=== PATIENT | female | born 1970 | race Caucasian/White ===

== ENCOUNTER 2016-05-18 09:50 | Emergency (ER) | payer BC ==
[2016-05-18] MEDS ORDERED: ZOVIRAX400 MG PO (10:08)
[2016-05-18] MEDS ORDERED: PREDNISONE20 M1 PO (10:08)
[2016-05-18] MEDS ORDERED: CLINDAMYCIN 300MG PO (10:09)
[2016-05-18] MEDS ORDERED: TYLENOL EXTRA500 M2 PO (10:09)
[2016-05-18] MEDS ORDERED: PEPCID 20MG TAB20 MG PO (13:20)
[2016-05-18] MEDS ORDERED: PERCOCET 325 MG1 TA2 PO (13:20)
[2016-05-18] MEDS ORDERED: OMEPRAZOLE20 MG PO (13:20)
[2016-05-18 13:25] VITALS: BP 125/84
== END 2016-05-18 13:29 | disposition home or self-care (01) ==
LOC: ED 09:50
DX: K20.9 Esophagitis, unspecified (principal); G51.0 Bell's palsy; F17.210 Nicotine dependence, cigarettes, uncomplicated

== ENCOUNTER → 2017-09-02 | Outpatient (CLI) | payer BC ==
[~2017-09-02] MED LIST: CLINDAMYCIN 300MG PO; OMEPRAZOLE20 MG PO; PEPCID 20MG TAB20 MG PO; PERCOCET 325 MG1 TA2 PO; PREDNISONE20 M1 PO; TYLENOL EXTRA500 M2 PO; ZOVIRAX400 MG PO
== END ==
LOC: MAMMO 13:36
DX: Z12.31 Encounter for screening mammogram for malignant neoplasm of breast (principal); N63.11 Unspecified lump in the right breast, upper outer quadrant; N63.20 Unspecified lump in the left breast, unspecified quadrant

== ENCOUNTER → 2017-09-11 | Outpatient (CLI) | payer BC | LOC: MAMMO 14:07 | DX: N60.02 Solitary cyst of left breast (principal) ==

== ENCOUNTER → 2017-10-07 | Outpatient (CLI) | payer BC ==
[2017-10-07 13:53] LABS: EOS # 0.3 (0.04-0.40); EOS % 4.2 % (1.0-5.0); HEMATOCRIT 40.1 % (37.0-47.0); HEMOGLOBIN 13.2 g/dL (12.5-16.0); MEAN CELL VOLUME 92 fl (78-100); MEAN CORPUSCULAR HEMOGLOBIN 30 pg (27-31); MEAN CORPUSCULAR HGB CONC 33 g/dL (33-37); MEAN PLATELET VOLUME 9.7 fl (7.4-10.4); MONO # 0.5 (0.20-0.80); NEU # 3.4 (1.40-6.50); PLATELET COUNT 334 K/mm3 (130-400); RED BLOOD COUNT 4.37 M/mm3 (4.10-5.30); RED CELL DISTRIBUTION WIDTH 12.8 % (11.5-14.5); WHITE BLOOD COUNT 6.1 K/mm3 (4.8-10.8)
[2017-10-07 14:04] LABS: ALBUMIN 3.7 g/dL (3.5-5.0); BUN/CREATININE RATIO 10.8 (6.0-26.0); CALCIUM 8.5 mg/dL (8.4-10.2); POTASSIUM 3.9 mmol/L (3.6-5.0); TOTAL BILIRUBIN 0.3 mg/dL (0.2-1.3); TOTAL PROTEIN 7.1 g/dL (6.3-8.2)
[2017-10-07 23:17] LABS: HEPATITIS B CORE AB TOTAL Negative (()); HEPATITIS B SURFACE ANTIGEN Negative (()); HEPATITIS C VIRUS ANTIBODY Negative (())
== END ==
LOC: LAB 13:33
PROVIDERS: Physician Assistant
DX: Z79.899 Other long term (current) drug therapy (principal)

== ENCOUNTER → 2017-11-24 | Outpatient (CLI) | payer BC | LOC: MAMMO 07:11 | DX: N60.01 Solitary cyst of right breast (principal) ==

== ENCOUNTER 2017-12-02 21:30 | Emergency (ER) | payer BC ==
[~2017-12-02] VITALS: Ht 165.1 cm; Wt 100.0 kg
[2017-12-02] MEDS ORDERED: HUMIRA40 MG/0.5 (21:56)
[2017-12-02 22:11] LABS: EOS # 0.2 (0.04-0.40); HEMATOCRIT 39.9 % (37.0-47.0); HEMOGLOBIN 13.1 g/dL (12.5-16.0); LYMPH# 1.6 (1.50-4.00); MEAN CELL VOLUME 90 fl (78-100); MEAN CORPUSCULAR HEMOGLOBIN 30 pg (27-31); MEAN CORPUSCULAR HGB CONC 33 g/dL (33-37); MEAN PLATELET VOLUME 9.9 fl (7.4-10.4); MONO # 0.4 (0.20-0.80); NEU # 4.4 (1.40-6.50); PLATELET COUNT 307 K/mm3 (130-400); RED BLOOD COUNT 4.44 M/mm3 (4.10-5.30); RED CELL DISTRIBUTION WIDTH 13.1 % (11.5-14.5); WHITE BLOOD COUNT 6.7 K/mm3 (4.8-10.8)
[2017-12-02 22:23] LABS: BUN/CREATININE RATIO 14.1 (6.0-26.0); POTASSIUM 3.7 mmol/L (3.6-5.0); TOTAL BILIRUBIN 0.4 mg/dL (0.2-1.3)
[2017-12-02 22:37] LABS: PH-URINE 5.5 (5.0 - 8.0); URINE APPEARANCE HAZY; URINE BILIRUBIN NEGATIVE (NEGATIVE); URINE BLOOD 50 ery/uL (NEGATIVE); URINE COLOR YELLOW; URINE GLUCOSE NEGATIVE (NEGATIVE); URINE KETONE NEGATIVE (NEGATIVE); URINE LEUKOCYTE ESTERASE TRACE (NEGATIVE); URINE NITRATE NEGATIVE (NEGATIVE); URINE PROTEIN(semi-quant) TRACE mg/dL (NEGATIVE); URINE UROBILINOGEN NORMAL (NORMAL)
[2017-12-02] MEDS ORDERED: PROTONIX20 M1 PO (23:42)
[2017-12-02 23:50] VITALS: BP 142/78
== END 2017-12-02 23:50 | disposition home or self-care (01) ==
LOC: ED 21:30
PROVIDERS: Nurse Practitioner Family
DX: K21.9 Gastro-esophageal reflux disease without esophagitis (principal); R53.81 Other malaise; R53.83 Other fatigue; B37.49 Other urogenital candidiasis; I10 Essential (primary) hypertension; L40.9 Psoriasis, unspecified; R07.9 Chest pain, unspecified; Z79.899 Other long term (current) drug therapy
CPT/HCPCS: J2405; J7030

== ENCOUNTER → 2018-06-25 | Outpatient (CLI) | payer BC ==
[~2018-06-25] MED LIST changes: +HUMIRA40 MG/0.5; +PROTONIX20 M1 PO
== END ==
LOC: LAB 15:46
DX: N39.0 Urinary tract infection, site not specified (principal); R35.0 Frequency of micturition; B96.1 Klebsiella pneumoniae [K. pneumoniae] as the cause of diseases classified elsewhere

== ENCOUNTER → 2019-01-19 | Outpatient (CLI) | payer BC | LOC: LAB 13:36 | DX: N39.0 Urinary tract infection, site not specified (principal) ==

== ENCOUNTER 2019-04-08 19:53 | Emergency (ER) | payer BC ==
[2019-04-08] MEDS ORDERED: OTEZLA30 MG PO (20:07)
[2019-04-08 23:18] VITALS: BP 143/97
[2019-04-08] MEDS ORDERED: PERCOCET 325 MG1 TA2 PO (23:27)
== END 2019-04-08 23:36 | disposition home or self-care (01) ==
LOC: ED 19:53
DX: S82.52XA Displaced fracture of medial malleolus of left tibia, initial encounter for closed fracture (principal); S82.832A Other fracture of upper and lower end of left fibula, initial encounter for closed fracture; I10 Essential (primary) hypertension; L40.9 Psoriasis, unspecified; F17.210 Nicotine dependence, cigarettes, uncomplicated; W00.9XXA Unspecified fall due to ice and snow, initial encounter; X50.1XXA Overexertion from prolonged static or awkward postures, initial encounter; Y92.009 Unspecified place in unspecified non-institutional (private) residence as the place of occurrence of the external cause
CPT/HCPCS: J3010

== ENCOUNTER → 2019-05-18 | Outpatient (CLI) | payer BC ==
[~2019-05-18] MED LIST changes: +OTEZLA30 MG PO
== END ==
LOC: LAB 16:46
DX: R30.0 Dysuria (principal); R31.9 Hematuria, unspecified; R35.0 Frequency of micturition

== ENCOUNTER → 2019-06-02 | Outpatient (CLI) | payer BC | LOC: MAMMO 05-11 14:30 | DX: Z12.31 Encounter for screening mammogram for malignant neoplasm of breast (principal); N63.20 Unspecified lump in the left breast, unspecified quadrant; N63.10 Unspecified lump in the right breast, unspecified quadrant ==

== ENCOUNTER → 2019-06-10 | Outpatient (CLI) | payer BC | LOC: RAD 12:04 | DX: N60.12 Diffuse cystic mastopathy of left breast (principal); N60.11 Diffuse cystic mastopathy of right breast; N63.12 Unspecified lump in the right breast, upper inner quadrant ==

== ENCOUNTER 2019-07-01 15:00 | Outpatient (RCR) | payer BC | END 2019-09-27 | disposition still patient (30) | LOC: PT | DX: Z98.890 Other specified postprocedural states (principal) ==

== ENCOUNTER → 2019-09-02 | Outpatient (CLI) | payer BC | LOC: LAB 15:21 | DX: R11.0 Nausea (principal); R68.83 Chills (without fever); M79.10 Myalgia, unspecified site; R42 Dizziness and giddiness; Z20.828 Contact with and (suspected) exposure to other viral communicable diseases ==

== ENCOUNTER → 2020-02-16 | Outpatient (CLI) | payer BC | LOC: LAB 07:44 | DX: J02.9 Acute pharyngitis, unspecified (principal); Z20.828 Contact with and (suspected) exposure to other viral communicable diseases ==

== ENCOUNTER → 2020-06-14 | Outpatient (CLI) | payer BC ==
[~2020-06-14] MED LIST changes: +BACTRIM DS TAB1 EACH PO; +LISINOPRIL40 MG PO; +NORVASC 10MG10 MG PO
[2020-06-15 07:49] LABS: CALCIUM 8.7 mg/dL (8.3-10.5); EOS # 0.2 (0.04-0.40); EOS % 3.5 % (1.0-5.0); HEMATOCRIT 44.7 % (37.0-47.0); HEMOGLOBIN 14.2 g/dL (12.5-16.0); LYMPH# 1.6 (1.50-4.00); MEAN CELL VOLUME 93 fl (78-100); MEAN CORPUSCULAR HEMOGLOBIN 30 pg (27-31); MEAN CORPUSCULAR HGB CONC 32 g/dL (33-37); MEAN PLATELET VOLUME 9.7 fl (7.4-10.4); MONO # 0.4 (0.20-0.80); NEU # 3.9 (1.40-6.50); PLATELET COUNT 359 K/mm3 (130-400); POTASSIUM 4.1 mmol/L (3.5-5.1); RED BLOOD COUNT 4.82 M/mm3 (4.10-5.30); RED CELL DISTRIBUTION WIDTH 13.9 % (11.5-14.5); TOTAL BILIRUBIN 0.3 mg/dL (0.2-1.2); TOTAL PROTEIN 7.6 g/dL (6.4-8.3); URINE COLOR YELLOW; WHITE BLOOD COUNT 6.2 K/mm3 (4.8-10.8)
[2020-06-15 07:50] LABS: URINE APPEARANCE CLEAR; URINE BILIRUBIN NEGATIVE (NEGATIVE); URINE BLOOD TRACE (NEGATIVE); URINE GLUCOSE NEGATIVE (NEGATIVE); URINE KETONE NEGATIVE (NEGATIVE); URINE LEUKOCYTE ESTERASE NEGATIVE (NEGATIVE); URINE MUCUS PRESENT (NOT PRESENT); URINE NITRATE NEGATIVE (NEGATIVE); URINE PROTEIN(semi-quant) NEGATIVE (NEGATIVE); URINE UROBILINOGEN NORMAL (NORMAL)
== END ==
LOC: LAB 08:00
PROVIDERS: Physician Assistant
DX: E78.5 Hyperlipidemia, unspecified (principal); I10 Essential (primary) hypertension; R53.83 Other fatigue; R31.9 Hematuria, unspecified; R10.2 Pelvic and perineal pain

== ENCOUNTER → 2020-08-22 | Outpatient (CLI) | payer BC | LOC: RAD 09:00 | DX: E27.8 Other specified disorders of adrenal gland (principal) | CPT/HCPCS: Q9967 ==

== ENCOUNTER → 2020-08-31 | Outpatient (CLI) | payer BC ==
[2020-08-31 13:06] LABS: BASO # 0.04 (0.02-0.10); EOS # 0.26 (0.04-0.40); EOS % 3.1 % (1.0-5.0); HEMATOCRIT 43.3 % (37.0-47.0); HEMOGLOBIN 14.1 g/dL (12.5-16.0); LYMPH# 1.55 (1.50-4.00); MEAN CELL VOLUME 93 fl (78-100); MEAN CORPUSCULAR HEMOGLOBIN 30 pg (27-31); MEAN CORPUSCULAR HGB CONC 33 g/dL (33-37); MEAN PLATELET VOLUME 9.7 fl (7.4-10.4); MONO # 0.59 (0.20-0.80); NEU # 5.78 (1.40-6.50); PLATELET COUNT 321 K/mm3 (130-400); RED BLOOD COUNT 4.64 M/mm3 (4.10-5.30); RED CELL DISTRIBUTION WIDTH 13.7 % (11.5-14.5); WHITE BLOOD COUNT 8.3 K/mm3 (4.8-10.8)
[2020-08-31 13:12] LABS: URINE COLOR YELLOW
[2020-08-31 13:13] LABS: URINE APPEARANCE CLEAR; URINE BILIRUBIN NEGATIVE (NEGATIVE); URINE BLOOD TRACE (NEGATIVE); URINE GLUCOSE NEGATIVE (NEGATIVE); URINE KETONE NEGATIVE (NEGATIVE); URINE LEUKOCYTE ESTERASE NEGATIVE (NEGATIVE); URINE NITRATE NEGATIVE (NEGATIVE); URINE PROTEIN(semi-quant) TRACE mg/dL (NEGATIVE); URINE UROBILINOGEN NORMAL (NORMAL); URINE WBC 0-1 /hpf (0-3)
== END ==
LOC: LAB 12:54
PROVIDERS: Nurse Practitioner
DX: R53.83 Other fatigue (principal); R10.9 Unspecified abdominal pain

== ENCOUNTER 2021-02-26 12:33 | Emergency (ER) | payer BC ==
[~2021-02-26 12:33] MED LIST changes: -BACTRIM DS TAB1 EACH PO; -LISINOPRIL40 MG PO; -NORVASC 10MG10 MG PO
[2021-02-26] MEDS ORDERED: LISINOPRIL40 MG PO (12:48)
[2021-02-26] MEDS ORDERED: NORVASC 10MG10 MG PO (12:48)
[2021-02-26 13:19] LABS: URINE APPEARANCE HAZY; URINE COLOR YELLOW
[2021-02-26 13:20] LABS: URINE BILIRUBIN 1+ (NEGATIVE); URINE BLOOD 250 ery/uL (NEGATIVE); URINE GLUCOSE NEGATIVE (NEGATIVE); URINE KETONE NEGATIVE (NEGATIVE); URINE LEUKOCYTE ESTERASE 1+ (NEGATIVE); URINE NITRATE NEGATIVE (NEGATIVE); URINE PROTEIN(semi-quant) 2+ mg/dL (NEGATIVE); URINE UROBILINOGEN NORMAL (NORMAL)
[2021-02-26 13:23] LABS: BASO # 0.05 K/mm3 (0.02-0.10); EOS # 0.24 K/mm3 (0.04-0.40); EOS % 3.5 % (1.0-5.0); HEMATOCRIT 42.6 % (37.0-47.0); HEMOGLOBIN 13.7 g/dL (12.5-16.0); LYMPH# 1.62 K/mm3 (1.50-4.00); MEAN CELL VOLUME 95 fl (78-100); MEAN CORPUSCULAR HEMOGLOBIN 31 pg (27-31); MEAN CORPUSCULAR HGB CONC 32 g/dL (33-37); MEAN PLATELET VOLUME 9.8 fl (7.4-10.4); MONO # 0.44 K/mm3 (0.20-0.80); PLATELET COUNT 313 K/mm3 (130-400); RED BLOOD COUNT 4.49 M/mm3 (4.10-5.30); RED CELL DISTRIBUTION WIDTH 13.3 % (11.5-14.5); WHITE BLOOD COUNT 6.9 K/mm3 (4.8-10.8)
[2021-02-26 13:30] LABS: ALBUMIN 3.5 g/dL (3.5-5.0)
[2021-02-26 13:31] LABS: CALCIUM 8.8 mg/dL (8.3-10.5)
[2021-02-26 13:33] LABS: TOTAL PROTEIN 6.9 g/dL (6.4-8.3)
[2021-02-26 13:34] LABS: TOTAL BILIRUBIN 0.5 mg/dL (0.2-1.2)
[2021-02-26 15:46] LABS: URINE APPEARANCE CLEAR; URINE BILIRUBIN NEGATIVE (NEGATIVE); URINE BLOOD TRACE (NEGATIVE); URINE COLOR YELLOW; URINE GLUCOSE NEGATIVE (NEGATIVE); URINE KETONE NEGATIVE (NEGATIVE); URINE LEUKOCYTE ESTERASE NEGATIVE (NEGATIVE); URINE MUCUS PRESENT (NOT PRESENT); URINE NITRATE NEGATIVE (NEGATIVE); URINE PROTEIN(semi-quant) TRACE mg/dL (NEGATIVE); URINE UROBILINOGEN NORMAL (NORMAL); URINE WBC 0-1 /hpf (0-3)
[2021-02-26 15:48] VITALS: BP 114/73
[2021-02-26] MEDS ORDERED: BACTRIM DS TAB1 EACH PO (15:48)
== END 2021-02-26 16:35 | disposition home or self-care (01) ==
LOC: ED 12:33
PROVIDERS: Nurse Practitioner
DX: R05.9 Cough, unspecified (principal)
CPT/HCPCS: J1885; J2405; J3010; J7030

== ENCOUNTER → 2021-10-16 | Outpatient (CLI) | payer BC ==
[~2021-10-16] MED LIST changes: +BACTRIM DS TAB1 EACH PO; +LISINOPRIL40 MG PO; +NORVASC 10MG10 MG PO
== END ==
LOC: LAB 17:19
DX: N39.0 Urinary tract infection, site not specified (principal)

== ENCOUNTER → 2021-10-29 | Outpatient (CLI) | payer BC ==
[2021-10-29 14:28] LABS: BASO # 0.04 K/mm3 (0.02-0.10); EOS # 0.18 K/mm3 (0.04-0.40); EOS % 3.8 % (1.0-5.0); HEMATOCRIT 42.8 % (37.0-47.0); HEMOGLOBIN 13.9 g/dL (12.5-16.0); LYMPH# 1.44 K/mm3 (1.50-4.00); MEAN CELL VOLUME 95 fl (78-100); MEAN CORPUSCULAR HEMOGLOBIN 31 pg (27-31); MEAN CORPUSCULAR HGB CONC 33 g/dL (33-37); MEAN PLATELET VOLUME 9.8 fl (7.4-10.4); MONO # 0.34 K/mm3 (0.20-0.80); NEU # 2.68 K/mm3 (1.40-6.50); PLATELET COUNT 346 K/mm3 (130-400); RED BLOOD COUNT 4.53 M/mm3 (4.10-5.30); RED CELL DISTRIBUTION WIDTH 12.3 % (11.5-14.5); WHITE BLOOD COUNT 4.7 K/mm3 (4.8-10.8)
[2021-10-29 14:39] LABS: POTASSIUM 4.3 mmol/L (3.5-5.1)
[2021-10-29 14:40] LABS: ALBUMIN 3.9 g/dL (3.5-5.0)
[2021-10-29 14:41] LABS: CALCIUM 9.2 mg/dL (8.3-10.5)
[2021-10-29 14:42] LABS: TOTAL PROTEIN 7.3 g/dL (6.4-8.3)
[2021-10-29 14:44] LABS: TOTAL BILIRUBIN 0.3 mg/dL (0.2-1.2)
[2021-10-29 14:49] LABS: MAGNESIUM 2.08 mg/dL (1.60-2.60)
== END ==
LOC: LAB 13:43
PROVIDERS: Physician Assistant
DX: Z00.00 Encounter for general adult medical examination without abnormal findings (principal); Z13.29 Encounter for screening for other suspected endocrine disorder; Z13.1 Encounter for screening for diabetes mellitus; E55.9 Vitamin D deficiency, unspecified; E78.5 Hyperlipidemia, unspecified; I10 Essential (primary) hypertension; K90.9 Intestinal malabsorption, unspecified

== ENCOUNTER 2023-02-23 08:05 | Emergency (ER) | payer OTHER ==
[~2023-02-23] VITALS: Ht 165.1 cm; Wt 95.5 kg
[2023-02-23] MEDS ORDERED: PREDNISONE 5MG5 MG PO (08:19)
[2023-02-23 08:54] LABS: BASO # 0.04 K/mm3 (0.02-0.10); EOS # 0.12 K/mm3 (0.04-0.40); EOS % 1.2 % (1.0-5.0); HEMATOCRIT 42.1 % (37.0-47.0); HEMOGLOBIN 13.7 g/dL (12.5-16.0); MEAN CELL VOLUME 95 fl (78-100); MEAN CORPUSCULAR HEMOGLOBIN 31 pg (27-31); MEAN CORPUSCULAR HGB CONC 33 g/dL (33-37); MEAN PLATELET VOLUME 9.8 fl (7.4-10.4); MONO # 0.45 K/mm3 (0.20-0.80); NEU # 5.87 K/mm3 (1.40-6.50); PLATELET COUNT 354 K/mm3 (130-400); RED BLOOD COUNT 4.43 M/mm3 (4.10-5.30); RED CELL DISTRIBUTION WIDTH 12.3 % (11.5-14.5); WHITE BLOOD COUNT 9.7 K/mm3 (4.8-10.8)
[2023-02-23 08:58] LABS: ALBUMIN 3.7 g/dL (3.5-5.0)
[2023-02-23 09:01] LABS: TOTAL PROTEIN 6.4 g/dL (6.4-8.3)
[2023-02-23 09:03] LABS: TOTAL BILIRUBIN 0.3 mg/dL (0.2-1.2)
[2023-02-23 11:21] LABS: URINE APPEARANCE CLEAR; URINE BILIRUBIN NEGATIVE (NEGATIVE); URINE BLOOD NEGATIVE (NEGATIVE); URINE COLOR YELLOW; URINE GLUCOSE NEGATIVE (NEGATIVE); URINE KETONE NEGATIVE (NEGATIVE); URINE LEUKOCYTE ESTERASE NEGATIVE (NEGATIVE); URINE NITRATE NEGATIVE (NEGATIVE); URINE PROTEIN(semi-quant) NEGATIVE (NEGATIVE); URINE UROBILINOGEN NORMAL (NORMAL)
[2023-02-23 11:33] LABS: URINE WBC 0-1 /hpf (0-3)
[2023-02-23] MEDS ORDERED: POTASSIUM CHLO20 ME4 PO (11:52)
[2023-02-23 12:03] VITALS: BP 159/85
== END 2023-02-23 12:00 | disposition home or self-care (01) ==
LOC: ED 08:05
PROVIDERS: Family Medicine
DX: R10.13 Epigastric pain (principal); R19.7 Diarrhea, unspecified; E87.6 Hypokalemia; F17.200 Nicotine dependence, unspecified, uncomplicated
CPT/HCPCS: C9113; J1885; J7030

== ENCOUNTER → 2023-09-25 | Outpatient (CLI) | payer OTHER ==
[~2023-09-25] MED LIST changes: +POTASSIUM CHLO20 ME4 PO; +PREDNISONE 5MG5 MG PO
== END ==
LOC: RAD 10:05
DX: M17.11 Unilateral primary osteoarthritis, right knee (principal)

== ENCOUNTER → 2023-12-25 | Outpatient (CLI) | payer OTHER | LOC: MAMMO 10:30 | DX: Z12.31 Encounter for screening mammogram for malignant neoplasm of breast (principal); N64.9 Disorder of breast, unspecified ==